=== PATIENT | male | born 1955 | race Two or more races ===

== ENCOUNTER 2019-03-03 08:56 | Emergency (ER) | payer OTHER ==
[~2019-03-03] VITALS: Ht 177.8 cm; Wt 84.4 kg
[~2019-03-03 08:56] MED LIST: ALTACE10 MG; ATORVASTATIN CA10 MG; DILANTIN30 MG; LIPITOR20 MG; METFORMIN HCL500 MG; NEURONTIN300 MG; RAMIPRIL5 MG
== END 2019-03-03 13:10 | disposition home or self-care (01) ==
LOC: ER 08:56
DX: J01.80 Other acute sinusitis (principal); J32.8 Other chronic sinusitis

== ENCOUNTER 2021-02-09 15:36 | Emergency (ER) | payer OTHER ==
[~2021-02-09] VITALS: Ht 170.2 cm; Wt 81.6 kg
== END 2021-02-09 21:04 | disposition home or self-care (01) ==
LOC: ER 15:36
DX: M54.5 Low back pain (principal)